=== PATIENT | female | born 1995 ===

== ENCOUNTER 2020-01-27 10:00 | Inpatient (IN) | payer OTHER ==
--- NOTE | 2020-01-27 09:57 | History and Physical Report ---
History of Present Illness Date of examination: 01/27/20 History of present illness: 24yo at 39.6 weeks with h/o LTCS is for RLTCS today. Uncomplicated preg per record but it notes she had a seizure during her labor last . No such issues during this . Past History Past Medical History: no pertinent history Past Surgical History: no surgical history Social history: no significant social history - Obstetrical History Expected Date of Delivery: 01/28/20 Actual Gestation: 39 Week(s) 6 Day(s) : 2 Para: 1 Hx # Term Pregnancies: 1 Number of Living Children: 1 Medications and Allergies Allergies Allergy/AdvReac Type Severity Reaction Status Date / Time No Known Allergies Allergy Unverified 01/27/20 10:41 Active Meds: see EMR charting. Review of Systems All systems: negative (except HPI) - Vital Signs Vital signs: see EMR charting. Results Result Diagrams: 01/27/20 10:52 All other labs normal. Assessment and Plan - Patient Problems (1) Previous section Current Visit: No Status: Acute Plan to address problem: PT for RLTCS today. Patient fully consented for the surgery via information security associate. Risks, benefits, and alternatives were all discussed with the patient including risk of bleeding, infection, and potential for injury. Patient understands and accepts these risks. Patient agrees to proceed with surgery. All questions were answered.
[2020-01-27] MEDS ORDERED: METOCLOPRAMIDE 10 MG/2 ML INJ IV ONE (10:35)
[2020-01-27] MEDS ORDERED: FAMOTIDINE 20 MG/2 ML INJ IV ONE (10:35)
[2020-01-27] MEDS ORDERED: BICITRA ORAL LIQD 30ML PO ONE (10:35)
[2020-01-27] MEDS ORDERED: ceFAZolin/Water 2 GM/20 ML 2 GM/20 ML SYRINGE IV NR (11:00)
[2020-01-27] MEDS ORDERED: OXYTOCIN DRIP 30 UNITS/500 ML BAG IV SCH ×2 (11:00→14:00)
[2020-01-27] MEDS: LACTATED RINGERS 1,000 ML IV SCH ×2 (11:11→12:06)
[2020-01-27 11:15] LABS: Hematocrit 34.1 % (30.3-42.9); Hemoglobin 11.4 gm/dl (10.1-14.3); Mean Corpuscular HGB Conc 34 % (30-34); Mean Corpuscular Volume 88 fl (79-97); Platelet Count 255 K/mm3 (140-440); Red Blood Count 3.87 M/mm3 (3.65-5.03); Red Cell Distribution Width 14.6 % (13.2-15.2)
--- NOTE | 2020-01-27 11:32 | Anesthesia Day of Surgery ---
Anesthesia Day of Surgery - Day of Surgery Patient Examined: Yes Patient H&P Reviewed: Yes Patient is NPO: Yes Beta Blockers: No Cardiac Clearance: No Pulmonary Clearance: No Naren's Test: N/A
--- NOTE | 2020-01-27 11:38 | Anesthesia Consultation ---
Anesthesia Consult and Med Hx Date of service: 01/27/20 - Airway Anesthetic Teeth Evaluation: Good ROM Head & Neck: Adequate Mental/Hyoid Distance: Adequate Mallampati Class: Class II Intubation Access Assessment: Good - Pulmonary Exam CTA: Yes - Cardiac Exam Cardiac Exam: RRR - Pre-Operative Health Status ASA Pre-Surgery Classification: ASA2 Proposed Anesthetic Plan: Spinal - Pre-Anesthesia Comment Pre-Anesthesia Comments: csection 2017 - Pulmonary Hx Smoking: No Hx Asthma: No Hx Respiratory Symptoms: No SOB: No COPD: No Home Oxygen Therapy: No Hx Pneumonia: No Hx Sleep Apnea: No - Cardiovascular System Hx Hypertension: No Hx Coronary Artery Disease: No Hx Heart Attack/AMI: No Hx Angina: No Hx Percutaneous Transluminal Coronary Angioplasty (PTCA): No Hx Cardia Arrhythmia: No Hx Pacemaker: No Hx Internal Defibrillator: No Hx Valvular Heart Disease: No Hx Heart Murmur: No Hx Peripheral Vascular Disease: No - Central Nervous System Hx Neuromuscular Disorder: No Hx Seizures: No CVA: No Hx Back Pain: No Hx Psychiatric Problems: No - Gastrointestinal Hx Ulcer: No Hx Gastroesophageal Reflux Disease: Yes - Endocrine Hx Renal Disease: No Hx End Stage Renal Disease: No Hx Cirrhosis: No Hx Liver Disease: No Hx Insulin Dependent Diabetes: No Hx Non-Insulin Dependent Diabetes: No Hx Thyroid Disease: No Hx Hypothyroidism: No Hx Hyperthyroidism: No - Hematic Hx Anemia: No Hx Sickle Cell Disease: No - Other Systems Hx Alcohol Use: No Hx Substance Use: No Hx Cancer: No Hx Obesity: Yes
[2020-01-27] MEDS ORDERED: HYDROmorphone 1 MG/1 ML INJ IV PRN (11:40)
[2020-01-27] MEDS ORDERED: ONDANSETRON 4 MG/2 ML INJ IV PRN ×2 (11:40→14:00)
[2020-01-27 12:06] LABS: Basophils % (Manual) 0 % (0.0-1.8); Eosinophils % (Manual) 0 % (0.0-4.3); Total Cells Counted 100
[2020-01-27 12:07] LABS: Platelet Estimate Consistent w Auto; RBC Morphology Normal
[2020-01-27] MEDS ORDERED: ceFAZolin/STERILE WATER 2 GM/20 ML SYRINGE IV ONE (12:32)
[2020-01-27] MEDS ORDERED: PHENYLEPHRINE 10 MG/1 ML INJ SDV ONE ×2 (12:34)
[2020-01-27] MEDS ORDERED: ONDANSETRON 4 MG/2 ML INJ ONE (12:43)
[2020-01-27] MEDS ORDERED: dexAMETHasone 20 MG/5 ML VIAL ONE (12:57)
[2020-01-27] MEDS ORDERED: BUPIVACAINE/PF (0.5%) 5 MG/1 ML 30 ML VIAL INFILTRATI ONE (12:57)
[2020-01-27] MEDS ORDERED: KETOROLAC 30 MG/1 ML INJ ONE (13:00)
[2020-01-27] MEDS ORDERED: SODIUM CHLORIDE 0.9% 100 ML ONE (13:02)
--- NOTE | 2020-01-27 13:53 | Procedure Note ---
OB Delivery Note - Delivery Date of Delivery: 01/27/20 Surgeon: DEENA CA Estimated blood loss: other (800cc) - Section Preop diagnosis: repeat Postop diagnosis: same section procedure: section, repeat low transverse Disposition: PACU Complications: none Narrative: Indication: 24-year-old at 39 weeks and 6 days is here for her scheduled repeat low-transverse Findings: Normal uterus, tubes and ovaries. Clear fluid. No nuchal cord. Pa tient has thick subcutaneous tissue scarring. Some mild intra-abdominal omental scarring was also noted. Procedure: Patient taken to the operating room and prepped and draped in the usual fashion. Pfannenstiel skin incision was made and carried down to the underlying fascia. Fascia was incised and the incision was extended bilaterally. Rectus fascia dissected off the rectus muscle both superiorly and inferiorly. Peritoneum identified tented up and entered. Peritoneal incision extended superiorly and inferiorly with good visualization of the bladder. Bladder blade was placed. Uterine incision was made and the incision was extended bilaterally. The baby was delivered from in the typical vertex fashion. Baby bulb suctioned at the incision site and again after delivery. Cord was delayed clamped and cut and handed off to waiting team. The placenta was delivered spontaneously. The uterus was exteriorized and cleared of all clots and debris. Uterine incision closed with 0 Vicryl in a running locked fashion followed by a second imbricating layer of 0 Vicryl. Good hemostasis was noted. Her urine was clear. Uterus tubes and ovaries were returned to the abdominal cavity. Gutters were cleared of all clots and debris and the pelvis was well irrigated. Good hemostasis noted. Interceed placed over the uterine incision and over the lower uterine segment in the midline. Attention was turned to the rectus fascia which was reapproximated with 0 Vicryl in a running fashion. Subcutaneous tissue was irrigated and reapproximated with 2-0 Vicryl in a running fashion. Skin was closed with 4-0 Vicryl in a subcuticular fashion followed by Dermabond. The procedure was concluded at this point and the patient tolerated the procedure well. All instrument and lap cou nts were correct. - A at 1 minute: 8 at 5 minutes: 9 Infant Gender: Female
[2020-01-27] MEDS ORDERED: LANOLIN/ZINC/DIMETHICONE (LANSINOH) 7 GM TP PRN (14:00)
[2020-01-27] MEDS ORDERED: KETOROLAC 30 MG/1 ML INJ IV PRN (14:00)
[2020-01-27] MEDS ORDERED: NALOXONE 0.4 MG/1 ML INJ IV PRN (14:00)
[2020-01-27] MEDS ORDERED: WITCH HAZEL/ GLYCERIN PAD TP PRN (14:00)
[2020-01-27] MEDS ORDERED: SIMETHICONE 80 MG CHEW TAB PO PRN (14:00)
--- NOTE | 2020-01-27 14:07 | Progress Note ---
Spinal Anesthesia Block - Spinal Anesthesia Block Start Time: 12:21 Stop Time: 12:30 Performed by:: SHANITA COMER Procedure: Patient IDed, H&P reviewed, all questions and concerns were answered, and consent was signed. Timeout was performed at bedside. Patient in sitting position. Sterile prep and drape was performed. [3] ml of 1% lidocaine skin wheal at L[3]- L [4]. Needle introducer advanced. 25 gauge spinal needle advanced. Clear, free flowing CSF. negative blood, negative paresthesia. Spinal dose given. All needles removed. Patient tolerated procedure.
--- NOTE | 2020-01-27 14:11 | Progress Note ---
Subjective Date of service: 01/27/20 Principal diagnosis: Bilateral TAP Block for post op pain Interval history: Regional Anesthesia Block Bilateral Ultrasound Guided TAP Block Patient consented for TAP block for post surgical pain management. Patient identified, monitors placed, and time out performed. TAP identified bilaterally via ultrasound. Skin prepped bilaterally with [chlorhexidine] and [22g stimuplex] needle advanced to the TAP. [Marcaine 0.25% 30ml] injected under ultrasound guidance on the [left] side. [Marcaine 0.25% 30ml] injected under ultrasound guidance on the [right] side. Objective - Constitutional Vitals: Vital Signs - 12hr 01/27/20 01/27/20 01/27/20 10:44 10:45 10:46 Temperature 97.7 F Pulse Rate 72 74 Respiratory 20 Rate Blood Pressure 141/89 O2 Sat by Pulse 99 Oximetry 01/27/20 01/27/20 01/27/20 10:50 10:55 11:00 Temperature Pulse Rate 79 78 83 Respiratory Rate Blood Pressure O2 Sat by Pulse 99 99 99 Oximetry 01/27/20 01/27/20 01/27/20 11:05 11:10 11:15 Temperature Pulse Rate 82 77 81 Respiratory Rate Blood Pressure O2 Sat by Pulse 99 99 99 Oximetry 01/27/20 01/27/20 11:20 11:25 Temperature Pulse Rate 79 79 Respiratory Rate Blood Pressure O2 Sat by Pulse 99 99 Oximetry - Labs CBC & Chem 7: 01/27/20 10:52
--- NOTE | 2020-01-27 14:11 | Post Anesthesia Evaluation ---
- Post Anesthesia Evaluation Patient Participated: Yes Airway Patent: Yes Stable Respiratory Function: Yes Nausea/Vomiting: No Temp > 96.8F: Yes Pain Manageable: Yes Adequeate Hydration: Yes Anesthesia Complications: No Block Receding Appropriately: Yes Patient on Ventilator: No
[2020-01-27] MEDS ORDERED: SENNOSIDES 8.6 MG TAB PO PRN (22:00)
[2020-01-27] MEDS ORDERED: MAGNESIUM HYDROXIDE (MOM) ORAL LIQD UDC PO PRN (22:00)
[2020-01-28] MEDS: oxyCODONE /ACETAMINOPHEN 5-325MG TAB PO PRN ×3 (01:05→14:12)
[2020-01-28 06:23] LABS: Hematocrit 31.7 % (30.3-42.9); Hemoglobin 10.5 gm/dl (10.1-14.3)
--- NOTE | 2020-01-28 11:51 | Progress Note ---
Assessment and Plan - Patient Problems (1) Status post repeat low transverse section Current Visit: Yes Status: Acute Plan to address problem: Continue routine PP orders Keep dressing clean and dry, remove on POD#2 Anticipate d/c home in 4-48 hrs (2) Anemia Current Visit: Yes Status: Acute Qualifiers: Anemia type: other cause Other causes of anemia: acute posthemorrhagic Qualified Code(s): D62 - Acute posthemorrhagic anemia Plan to address problem: Asymptomatic Increase iron rich foods into diet Subjective - Subjective Date of service: 01/28/20 Principal diagnosis: S/P repeat C/S; POD#1 Interval history: See admission H & P; OB operative summary and PP progress notes Patient reports: appetite normal, voiding normally, pain well controlled (with medications), flatus, ambulating normally : doing well, bottle feeding (and ) Objective - Vital Signs Latest vital signs: Vital Signs Temp Pulse Resp BP BP Pulse Ox 01/28/20 08:59 97.9 F 72 18 126/88 97 01/28/20 04:35 98.0 F 73 18 101/59 97 01/28/20 00:53 98.0 F 72 18 119/74 95 01/27/20 21:15 98.2 F 87 18 124/80 96 01/27/20 14:55 98.2 F 80 18 127/85 98 01/27/20 14:40 75 25 H 129/80 99 01/27/20 14:25 70 16 119/79 99 01/27/20 14:10 71 16 118/74 99 01/27/20 14:04 72 17 115/73 98 01/27/20 14:01 98.4 F 77 31 H 109/67 98 Intake and Output 01/27/20 01/28/20 01/28/20 23:59 07:59 15:59 Intake Total 540 Output Total 1100 Balance -560 Intake: Oral 540 Output: Urine 1100 Indwelling Catheter 800 Void 300 Other: Total, Intake Amount 300 Total, Output Amount 300 - Exam Breasts: Present: normal Cardiovascular: Present: Regular rate Lungs: Present: Normal air movement Abdomen: Present: soft, tenderness Uterus: Present: firm, fundal height below umbilicus (U-2) Extremities: Present: normal Deep Tendon Reflex Grade: Normal +2 Incision: Present: dressed (no shadow drainage or bleeding noted)
[2020-01-28] MEDS: IBUPROFEN 800 MG TAB PO PRN ×2 (14:12→23:45)
[2020-01-29] MEDS: IBUPROFEN 800 MG TAB PO PRN (05:36)
[2020-01-29] MEDS: oxyCODONE /ACETAMINOPHEN 5-325MG TAB PO PRN ×3 (08:24→21:37)
[2020-01-29] MEDS: FERROUS SULFATE 325 MG TAB PO SCH (10:23)
--- NOTE | 2020-01-29 11:20 | Progress Note ---
Assessment and Plan A: /postop day 2 S/P repeat LTCS. Anemia. P: Supplement with oral iron. Encouraged ambulation. Subjective - Subjective Date of service: 01/29/20 Principal diagnosis: S/P repeat C/S; POD#2 Patient reports: appetite normal, voiding normally, pain well controlled, flatus, ambulating normally, no dizzy ambulation, no nauseated [place]: doing well Objective - Vital Signs Latest vital signs: Vital Signs Temp Pulse Resp BP BP Pulse Ox 01/29/20 09:00 97.2 F L 70 20 111/74 01/29/20 06:36 18 01/29/20 05:36 18 01/29/20 00:45 18 01/29/20 00:00 98 F 136 H 16 101/77 01/28/20 23:45 18 01/28/20 16:33 97.6 F 72 18 119/82 98 Intake and Output 01/28/20 01/29/20 01/29/20 23:59 07:59 15:59 Intake Total 120 420 240 Balance 120 420 240 Intake: Oral 240 Intake, Free Water 120 420 Other: Total, Intake Amount 240 # Voids Void 1 1 - Exam Cardiovascular: Present: Regular rate, No murmurs Lungs: Present: Clear to auscultation Abdomen: Present: normal appearance, soft, normal bowel sounds. Absent: distention, tenderness, guarding, rigidity Uterus: Present: normal, firm, fundal height below umbilicus. Absent: bogginess, tenderness Extremities: Present: normal. Absent: tenderness, edema Incision: Present: normal, dry, intact
[2020-01-30] MEDS: oxyCODONE /ACETAMINOPHEN 5-325MG TAB PO PRN (09:20)
[2020-01-30] MEDS: FERROUS SULFATE 325 MG TAB PO SCH (09:20)
--- NOTE | 2020-01-30 11:47 | Progress Note ---
Assessment and Plan A: day 3 S/P repeat LTCS. Anemia. P: Discharge patient home today. Discussed with patient discharge instructions and warning signs. Advised patient to avoid intercourse and lifting. Advised patient to continue to take her vitamins and iron supplements at home. Advised patient to return to the OB clinic in 1 week for incision check. Patient voiced understanding of all instructions. Subjective - Subjective Date of service: 01/30/20 Principal diagnosis: S/P repeat C/S; POD#3 Patient reports: appetite normal, voiding normally, pain well controlled, flatus, ambulating normally, no dizzy ambulation, no nauseated [place]: doing well Objective - Vital Signs Latest vital signs: Vital Signs Temp Pulse Resp BP BP Pulse Ox 01/30/20 08:48 97.7 F 84 18 127/83 97 01/30/20 00:28 98.1 F 83 18 117/76 97 01/29/20 21:37 18 01/29/20 16:40 97.9 F 74 20 116/74 Intake and Output 01/29/20 01/30/20 01/30/20 23:59 07:59 15:59 Intake Total 120 660 Balance 120 660 Intake: Oral 120 Intake, Free Water 660 Other: Total, Intake Amount 120 # Voids Void 2 - Exam Cardiovascular: Present: Regular rate Lungs: Present: Clear to auscultation Abdomen: Present: normal appearance, soft, normal bowel sounds. Absent: distention, tenderness, guarding, rigidity Uterus: Present: normal, firm, fundal height below umbilicus. Absent: bogginess, tenderness Extremities: Present: normal. Absent: tenderness, edema Incision: Present: normal, dry, intact
--- NOTE | 2020-01-30 11:50 | Discharge Summary ---
Providers - Providers Date of Admission: 01/27/20 10:00 Date of discharge: 01/30/20 Attending physician: DEENA CA Primary care physician: DEENA CA Hospitalization Reason for admission: section Delivery: Procedure: repeat low transverse Incision: normal, dry, intact Other procedures: none complications: none Discharge diagnosis: IUP at term delivered baby: female Pertinent studies: Labs Hospital course: Normal hospital course. Condition at discharge: Good Disposition: DC-01 TO HOME OR SELFCARE - Discharge Diagnoses (1) Term delivered Status: Acute Plan - Discharge Medications Prescriptions: Ibuprofen [Motrin 800 MG tab] 800 mg PO Q6H PRN #30 tablet PRN Reason: Pain, Mild (1-3) oxyCODONE /ACETAMINOPHEN [Percocet 5/325 mg] 1 tab PO Q6H PRN #30 tablet PRN Reason: Pain, Moderate (4-6) - Provider Discharge Summary Activity: routine, no sex for 6 weeks, no heavy lifting 4 weeks, no strenuous exercise Diet: routine Instructions: routine Additional instructions: Continue taking your vitamins and iron supplements at home. Follow up at the [facility] in 1 week for incision check. Call your doctor immediately for: * Fever > 100.5 * Heavy vaginal bleeding ( >1 pad per hour) * Severe persistent headache * Shortness of breath * Reddened, hot, painful area to leg or breast * Drainage or odor from incision. * Keep incision clean and dry at all times and follow doctor's instructions regarding bathing/showering - Follow up plan Follow up: DEENA CA MD [Primary Care Provider] - 7 Days
[2020-01-30 19:01] VITALS: BP 128/81
== END 2020-01-30 15:15 | disposition home or self-care (01) | DRG 787 ==
LOC: APU 10:00 → OB 16:14
PROVIDERS: ADMIT Obstetrics & Gynecology; ATTEND Obstetrics & Gynecology
PROC: 10D00Z1 Extraction of Products of Conception, Low, Open Approach (ICD-10-PCS; principal; 2020-01-27)
DX: O34.211 Maternal care for low transverse scar from previous cesarean delivery (principal); D62 Acute posthemorrhagic anemia; Z37.0 Single live birth; Z3A.39 39 weeks gestation of pregnancy; Z20.828 Contact with and (suspected) exposure to other viral communicable diseases; O99.62 Diseases of the digestive system complicating childbirth; K03.81 Cracked tooth; K21.9 Gastro-esophageal reflux disease without esophagitis; O99.214 Obesity complicating childbirth; E66.9 Obesity, unspecified; O90.81 Anemia of the puerperium
CPT/HCPCS: 36415; 85007; 85014; 85018; 85025; 86850; 86900; 86901; G0378; J0690; J1100; J1885; J2370; J2405; J2590; J2765; J7120; U0003